=== PATIENT | male | born 1990 | race Caucasian/White ===

== ENCOUNTER 2023-05-18 09:51 | Emergency (ER) | payer OTHER, SELFPAY ==
[2023-05-18 09:55] VITALS: BP 154/102; PULSE 69; RESP 14; TEMP 36.3; O2SAT 100; BMI 23.2
--- NOTE | 2023-05-18 10:02 | DI.RAD.S_ITS ---
PROCEDURE: XR HAND LT MIN 3V INDICATIONS: thumb, 2nd, 3rd finger lacerations TECHNIQUE: 3 views of the hand(s) acquired. COMPARISON: None. FINDINGS: Bones: There is a comminuted displaced fracture of the proximal aspect of the 2nd distal phalanx extending into the articular surface. No intra-articular extension. In addition, there is irregularity at the base of the 2nd middle phalanx. This does extend to the articular surface. Carpal bones are normally aligned. No suspicious bony lesions. Soft tissues: No suspicious soft tissue calcifications. No radiopaque foreign bodies. Soft tissue 2nd digit laceration. IMPRESSION: Mildly displaced intra-articular fracture at the base of the 2nd distal phalanx. Nondisplaced irregularity at the base of the 2nd middle phalanx extending to the articular surface. Prominent 2nd digit soft tissue laceration. Dictated by: Brittney Marie M.D. on 05/18/2023 at 10:43 Approved by: Brittney Marie M.D. on 05/18/2023 at 10:45
[2023-05-18] MEDS: OXYCODONE IR 5 MG TABLET PO (10:05)
[2023-05-18] MEDS: ACETAMINOPHEN 325 MG TABLET 975 MG PO (10:06)
--- NOTE | 2023-05-18 10:18 | ED.WOUNDLAC ---
HPI - Wound/Laceration General Chief Complaint: Skin/Abscess/Foreign Body Stated Complaint: LAC on L/hand Time Seen by Provider: 05/18/23 09:59 Source: patient Mode of arrival: Ambulatory History of Present Illness HPI narrative: 32-year-old male with no reported past medical history presents for finger laceration that occurred approximately 1 hour prior to arrival. Patient was working with a wind turbines fan and it cut his finger. He states that he is up-to-date on his tetanus vaccine. Two lacerations, 1 across the thumb, 1 across distal index finger. Related Data Previous Rx's Medication Instructions Recorded amoxicillin 875 mg-potassium 1 tab PO Q12H #20 tabs 05/18/23 clavulanate 125 mg tablet hydrocodone 5 mg-acetaminophen 325 1 tab PO Q8H PRN pain #10 tabs 05/18/23 mg tablet ondansetron 4 mg disintegrating 4 mg PO Q8H PRN nausea and 05/18/23 tablet vomiting #30 tabs Allergies Allergy/AdvReac Type Severity Reaction Status Date / Time No Known Drug Allergies Allergy Verified 05/18/23 09:58 Review of Systems Review of Systems Narrative: Negative except as noted above Patient History Social History Smoking Status: Never smoker Smoking Status: Never smoker alcohol intake frequency: 0-2 drinks per day Substance Use Type: marijuana Exam Initial Vital Signs Initial Vital Signs: Vital Signs Temperature 97.4 F L 05/18/23 09:55 Pulse Rate 69 05/18/23 09:55 Respiratory Rate 14 05/18/23 09:55 Blood Pressure 154/102 H 05/18/23 09:55 Pulse Oximetry 100 05/18/23 09:55 Oxygen Delivery Method Room Air 05/18/23 09:55 Const: Awake, alert, no acute distress, nontoxic appearing MSK: Horizontal laceration across medial distal index finger, lateral distal thumb. Skin: Warm, Dry, lacerations as noted above Neuro: AO x3, CN II-XII grossly intact, moves all extremities Procedures Laceration Repair Laceration 1: Site: hand Side (If applicable): left Size (cm): 1 Description: linear Depth: simple, single layer Local Anesthetic: lidocaine 1% Amount of anesthesia used (mL): 2 Pre-repair: wound explored and irrigated extensively Skin layer closed with: nylon Skin layer suture size: 4-0 Number of sutures: 2 Technique: simple, interrupted Laceration 2: Site: hand Side (If applicable): left Size (cm): 3 Description: irregular and clean Depth: simple, single layer Local Anesthetic: lidocaine 1% Amount of anesthesia used (mL): 5 Skin layer closed with: nylon Skin layer suture size: 4-0 Number of sutures: 8 Technique: simple, interrupted Course Orders Ordered: ED Orders 05/18/23 10:02 XR hand LT min 3V Stat Discontinued Medications Acetaminophen (Acetaminophen 325 Mg Tablet) 975 mg PO NOW ONE Stop: 05/18/23 10:02 Last Admin: 05/18/23 10:06 Dose: 975 mg Documented By: TC Bupivacaine HCl (Bupivacaine 0.5% Mdv) 5 ml SUBCUT NOW ONE Stop: 05/18/23 10:19 Last Admin: 05/18/23 10:26 Dose: Not Given Documented By: KLS Bupivacaine HCl (Bupivacaine 0.5% (Pf) 10 Ml Vial) 5 ml SUBCUT NOW ONE Stop: 05/18/23 10:25 Lorazepam (Lorazepam 0.5 Mg Tablet) 0.5 mg PO NOW ONE Stop: 05/18/23 10:23 Oxycodone HCl (Oxycodone Ir 5 Mg Tablet) 5 mg PO NOW ONE Stop: 05/18/23 10:02 Last Admin: 05/18/23 10:05 Dose: 5 mg Documented By: JOANN Vital Signs Vital signs: Vital Signs - 8 hr 05/18/23 09:55 05/18/23 12:19 05/18/23 12:28 Temperature 97.4 F L Pulse Rate 69 84 84 Respiratory Rate 14 14 14 Blood Pressure 154/102 H 144/99 H 144/99 H Pulse Oximetry 100 98 98 Oxygen Delivery Method Room Air Room Air Room Air MDM - Wound/Laceration Imaging Data Extremity x-ray #1: Radiologist's Impression: PROCEDURE: XR HAND LT MIN 3V INDICATIONS: thumb, 2nd, 3rd finger lacerations TECHNIQUE: 3 views of the hand(s) acquired. COMPARISON: None. FINDINGS: Bones: There is a comminuted displaced fracture of the proximal aspect of the 2nd distal phalanx extending into the articular surface. No intra-articular extension. In addition, there is irregularity at the base of the 2nd middle phalanx. This does extend to the articular surface. Carpal bones are normally aligned. No suspicious bony lesions. Soft tissues: No suspicious soft tissue calcifications. No radiopaque foreign bodies. Soft tissue 2nd digit laceration. IMPRESSION: Mildly displaced intra-articular fracture at the base of the 2nd distal phalanx. Nondisplaced irregularity at the base of the 2nd middle phalanx extending to the articular surface. Prominent 2nd digit soft tissue laceration. Dictated by: Brittney Marie M.D. on 05/18/2023 at 10:43 Approved by: Brittney Marie M.D. on 05/18/2023 at 10:45 MDM Narrative Medical decision making narrative: Fan injury leading to laceration of thumb and index finger on the left-hand. Patient is neurologically intact with full range of motion of the fingers, however there is nail injury to both the thumb and index finger. X-ray of the fingers shows that patient has a intra-articular fracture of the base of the 2nd distal phalanx. With the laceration overlying this is an open fracture. He was up-to-date on his tetanus shot. Wounds were copiously irrigated and then soaked in Betadine with normal saline. The wounds were explored and repaired per procedure note. Anchoring suture placed at base of index finger nail bed to keep nail in place. The laceration to the left thumb nail does not involve the base. Anchoring suture not place due to location. Patient's wound dressed, plan to discharge with antibiotics and pain medications. Patient was advised to keep the wound clean and dry, keep it elevated above heart level, and to follow up with Orthopedics. Patient was given extremely strict wound care precautions and strict ED return precautions. Discharge Plan Departure Patient Disposition: Home Clinical Impression: Open finger fracture Qualifiers: Encounter type: initial encounter Finger: index finger Phalanx: distal Fracture alignment: displaced Laterality: left Qualified Code(s): S62.631B - Displaced fracture of distal phalanx of left index finger, initial encounter for open fracture Instructions: DI for Finger Fracture Activity Restrictions/Additional Instructions: Finish all of your antibiotics as prescribed. Take Tylenol and Motrin as needed for pain, additional Pain medications have been sent to the pharmacy. The pain medication does have Tylenol in it, make sure to not take more than 4000 mg of Tylenol per day. Please follow up with your primary care doctor and orthopedics. The sutures in your finger we will need to come out in 7 days. Please come back if you notice redness, swelling, unusual drainage from the wounds. Keep them clean and dry while you are working or using your hands. Prescriptions: New hydrocodone-acetaminophen 5-325 mg tablet 1 tab PO Q8H PRN (Reason: pain) Qty: 10 0RF amoxicillin-pot clavulanate 875-125 mg tablet 1 tab PO Q12H Qty: 20 0RF ondansetron 4 mg tablet,disintegrating 4 mg PO Q8H PRN (Reason: nausea and vomiting) Qty: 30 0RF Referrals: Miscellaneous,MD David [Primary Care Provider] - Guilherme Rico MD [Physician] - Stand Alone Forms: Patient Portal/API
[2023-05-18] MEDS: LORazepam 0.5 MG TABLET PO (10:32)
[2023-05-18 12:19] VITALS: BP 144/99; PULSE 84; RESP 14; O2SAT 98
[2023-05-18 12:28] VITALS: BP 144/99; PULSE 84; RESP 14; O2SAT 98
== END 2023-05-18 12:29 | disposition home or self-care (01) ==
PROVIDERS: Emergency Provider Emergency Medicine
DX: S62.631B Displaced fracture of distal phalanx of left index finger, initial encounter for open fracture (principal); W45.8XXA Other foreign body or object entering through skin, initial encounter; Y99.0 Civilian activity done for income or pay
CPT/HCPCS: 12002; 73130; 99283